=== PATIENT | female | born 1980 | race Caucasian/White ===

== ENCOUNTER 2022-05-16 15:20 | Emergency (ER) | payer OTHER ==
[~2022-05-16] VITALS: Ht 167.6 cm; Wt 108.9 kg
[~2022-05-16 15:20] MED LIST: CELEXA40 MG PO; PRENATAL-FOLIC1 EACH PO; ZYRTEC10 MG PO
--- OUTSIDE RECORDS SUMMARY | 2022-05-16 15:26 | XMS ---
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 [facility] VISIT COUNT (12 MO.) 2 [facility] TOTAL 2 NOTE: Visits indicate total known visits. ED/UCC VISIT TRACKING (12 MO.) 05/16/2022 15:20 [facility] [place] TYPE: Emergency COMPLAINT: - RIGHT FLANK PAIN 05/16/2022 13:06 [facility] [place] TYPE: Emergency COMPLAINT: - RIGHT FLANK PAIN INPATIENT VISIT TRACKING (12 MO.) No inpatient visits to display in this time frame [email or web address]
[2022-05-16] MEDS ORDERED: HYDROCODON-ACE1 EA10 PO (20:18)
[2022-05-16] MEDS ORDERED: FLOMAX0.4 MG PO (20:18)
[2022-05-16] MEDS ORDERED: ONDANSETRON ODT8 MG PO (20:18)
== END 2022-05-16 20:46 | disposition home or self-care (01) ==
LOC: ED 15:20
DX: N13.2 Hydronephrosis with renal and ureteral calculous obstruction (principal); Z88.2 Allergy status to sulfonamides; Z79.899 Other long term (current) drug therapy
CPT/HCPCS: 36415; 74176; 80053; 81001; 84703; 85025; 96374; 96375; 96376; 99284-25; A9270; J1170; J1885; J2405